=== PATIENT | female | born 2000 | race Caucasian/White ===

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

== ENCOUNTER 2023-08-15 10:37 | Day surgery (SDC) | payer OTHER ==
[~2023-08-15] VITALS: Ht 167.6 cm; Wt 60.2 kg
[~2023-08-15 10:37] MED LIST changes: +DEPO150I IM; +LR 1,000 ML IV SCH
[2023-08-15 11:14] LABS: HEMATOCRIT 43.6 % (36.0-47.0); HEMOGLOBIN 14.4 g/dl (12.0-15.5); MEAN CORPUSCULAR HEMOGLOBIN 31.9 pg (27.0-33.0); MEAN CORPUSCULAR VOLUME 96.5 fl (80.0-96.0); PLATELET COUNT, AUTOMATED 277 10^3/uL (150-450); RED BLOOD COUNT 4.52 10^6/uL (4.00-5.40); WHITE BLOOD COUNT 7.1 10^3/uL (4.0-10.0)
[2023-08-15] MEDS ORDERED: fentaNYL 100 MCG/2 ML INJECTION As Ordered ONE (12:35)
[2023-08-15] MEDS ORDERED: MIDAZOLAM INJ 2MG/2ML VIAL As Ordered ONE (12:35)
[2023-08-15] MEDS ORDERED: propofoL 200 MG/20 ML VIAL As Ordered ONE (12:35)
[2023-08-15] MEDS ORDERED: dexmedeTOMIDine (4MCG/ML)200MCG/50ML BTL (PRECEDEX) As Ordered ONE (12:35)
[2023-08-15] MEDS ORDERED: SUGAMMADEX SODIUM 500 MG/5 ML VIAL (BRIDION) As Ordered ONE (12:35)
[2023-08-15] MEDS ORDERED: ONDANSETRON 4MG 2ML VIAL As Ordered ONE (12:35)
[2023-08-15] MEDS ORDERED: LIDOCAINE 2% 100MG/5ML SDV (FOR ANES.) As Ordered ONE (12:35)
[2023-08-15] MEDS ORDERED: ROCURONIUM BROMIDE 50MG/5ML VIAL As Ordered ONE (12:35)
[2023-08-15] MEDS ORDERED: HYDROmorphone HCL 2MG/ML 1ML VIAL As Ordered ONE (12:35)
[2023-08-15] MEDS ORDERED: ACETAMINOPHEN 1000MG 100ML IV BAG As Ordered ONE (12:35)
[2023-08-15] MEDS ORDERED: KETOROLAC 60MG 2ML VIAL As Ordered ONE (12:53)
[2023-08-15] MEDS ORDERED: HYDROMORPHONE HCL 0.5 MG/ 0.5 ML SYRINGE IV PRN (13:20)
[2023-08-15] MEDS ORDERED: fentaNYL 100 MCG/2 ML INJECTION IV PRN (13:20)
[2023-08-15] MEDS ORDERED: LR 1,000 ML IV SCH (13:20)
[2023-08-15] MEDS ORDERED: oxyCODONE 5MG TAB PO PRN ×2 (13:20→13:40)
[2023-08-15] MEDS ORDERED: ONDANSETRON 4MG 2ML VIAL IV PRN ×2 (13:20→13:40)
[2023-08-15] MEDS ORDERED: ACETAMINOPHEN 500 MG TAB PO PRN (13:40)
[2023-08-15 14:15] VITALS: BP 114/59; TEMP 98.5; O2SAT 99
== END 2023-08-15 14:40 | disposition home or self-care (01) ==
LOC: M SDC 10:37
PROVIDERS: ATTEND Obstetrics & Gynecology
DX: Z30.2 Encounter for sterilization (principal); N73.6 Female pelvic peritoneal adhesions (postinfective); Z79.3 Long term (current) use of hormonal contraceptives; Z88.2 Allergy status to sulfonamides; Z88.8 Allergy status to other drugs, medicaments and biological substances
CPT/HCPCS: 36415; 58661; 81025; 85027; 86850; 86900; 86901; 88302; J0131; J0665; J1100; J1170; J1885; J2250; J2405; J3010

== ENCOUNTER → 2023-11-26 | Outpatient (REF) | payer MEDICAID, OTHER ==
[~2023-11-26] MED LIST changes: -LR 1,000 ML IV SCH; +ONDA-282 PO; -ONDA4TAB6 PO
[2023-11-26 20:35] LABS: Trichomonas vaginalis (AMP) NOT DETECTED (NEGATIVE)
[2023-11-26 20:59] LABS: GC DNA AMPLIFICATION NEGATIVE (NEGATIVE)
== END ==
LOC: M SFHCWAGY 16:55
PROVIDERS: ATTEND Obstetrics & Gynecology
DX: Z12.4 Encounter for screening for malignant neoplasm of cervix (principal)

== ENCOUNTER 2024-09-12 11:45 | Day surgery (SDC) | payer OTHER ==
[~2024-09-12] VITALS: Ht 165.1 cm; Wt 69.0 kg
[~2024-09-12 11:45] MED LIST changes: +ACETAMINOPHEN 1000MG/100ML IV BAG As Ordered ONE; +ERGO500029 PO; +HYDR-643 PO; +LIDOCAINE 2% 100MG/5ML SDV (FOR ANES.) As Ordered ONE; +MIDAZOLAM INJ 2MG/2ML VIAL As Ordered ONE; +ONDANSETRON 4MG 2ML VIAL As Ordered ONE; +ROCURONIUM BROMIDE 50MG/5ML VIAL As Ordered ONE; +SUGAMMADEX SODIUM 500 MG/5 ML VIAL (BRIDION) As Ordered ONE; +dexmedeTOMIDine (4MCG/ML)200MCG/50ML BTL (PRECEDEX) As Ordered ONE; +fentaNYL 100 MCG/2 ML INJECTION As Ordered ONE
[2024-09-12 12:18] LABS: HEMATOCRIT 47.4 % (36.0-47.0); HEMOGLOBIN 15.9 g/dl (12.0-15.5); MEAN CORPUSCULAR HEMOGLOBIN 32.6 pg (27.0-33.0); MEAN CORPUSCULAR HGB CONC 33.5 g/dl (32.0-36.5); MEAN CORPUSCULAR VOLUME 97.1 fl (80.0-96.0); PLATELET COUNT, AUTOMATED 273 10^3/uL (150-450); RED BLOOD COUNT 4.88 10^6/uL (4.00-5.40); WHITE BLOOD COUNT 6.2 10^3/uL (4.0-10.0)
[2024-09-12] MEDS ORDERED: LR 1,000 ML IV SCH ×2 (12:20→14:55)
[2024-09-12] MEDS ORDERED: LIDOCAINE 1% SDV 5ML VIAL SC PRN (12:20)
[2024-09-12] MEDS ORDERED: OXYMETAZOLINE 0.05% NASAL SPRAY As Ordered ONE (14:06)
[2024-09-12] MEDS ORDERED: ONDANSETRON 4MG 2ML VIAL IV PRN (14:55)
[2024-09-12] MEDS ORDERED: fentaNYL 100 MCG/2 ML INJECTION IV PRN (14:55)
[2024-09-12] MEDS: HYDROMORPHONE HCL 0.5 MG/ 0.5 ML SYRINGE IV PRN (15:06)
[2024-09-12] MEDS: oxyCODONE 5MG TAB PO PRN (15:25)
[2024-09-12 16:01] VITALS: BP 119/71; TEMP 97.7; O2SAT 98
== END 2024-09-12 16:37 | disposition home or self-care (01) ==
LOC: M SDC 11:45
PROVIDERS: ATTEND Otolaryngology
DX: J35.01 Chronic tonsillitis (principal); J35.8 Other chronic diseases of tonsils and adenoids; L72.0 Epidermal cyst; Z88.2 Allergy status to sulfonamides; Z91.048 Other nonmedicinal substance allergy status; Z79.899 Other long term (current) drug therapy
CPT/HCPCS: 36415; 42826; 85027; 88302; J0131; J1100; J1171; J2250; J2405; J3010